=== PATIENT | female | born 1975 | race Caucasian/White ===

== ENCOUNTER 2025-05-19 19:27 | Emergency (ER) | payer MEDICAID, OTHER ==
[~2025-05-19] VITALS: Ht 170.2 cm; Wt 81.2 kg
[2025-05-19 20:34] VITALS: TEMP 98.4
[2025-05-19] MEDS ORDERED: KETOROLAC TROMETHAMINE 15 MG/ML VIAL ONE (20:57)
[2025-05-19] MEDS: FAMOTIDINE/PF INJ 20 MG/2 ML VIAL IV ONE (21:24)
[2025-05-19] MEDS: IV NS 0.9% 1,000 ML BAG IV ONE (21:24)
[2025-05-19 21:34] LABS: PLATELET COUNT (AUTO) 226 K/uL (150-450); RED BLOOD CELL COUNT(AUTO) 4.14 MIL/uL (4.0-5.2); RED CELL DISTRIBUTION WIDTH 13.2 % (11.5-15.0); WHITE BLOOD COUNT (AUTO) 4.9 K/uL (4.3-11.0)
[2025-05-19 21:36] LABS: APPEARANCE,URINE CLEAR (CLEAR); BLOOD, URINE NEGATIVE Ery/uL (NEGATIVE); LEUKOCYTE ESTERASE ,URINE NEGATIVE (NEGATIVE); NITRITE, URINE NEGATIVE (NEGATIVE); PREGNANCY TEST URINE QUAL NEGATIVE (NEGATIVE); UGLUCOSE NEGATIVE (NEGATIVE)
[2025-05-19 21:46] LABS: CALCIUM, SERUM 8.8 mg/dL (8.5-10.1); CREATININE 0.8 mg/dL (0.6-1.3); SODIUM SERUM 141.0 mmol/L (136-145); UREA NITROGEN, BLOOD 9.0 mg/dL (7-18)
[2025-05-19 21:54] LABS: ASPARTATE AMINOTRANSFERASE 13.0 U/L (15-37); TOTAL PROTEIN, SERUM 6.6 g/dL (6.4-8.2)
[2025-05-19] MEDS: KETOROLAC TROMETHAMINE 15 MG/ML VIAL IV ONE (21:56)
[2025-05-19] MEDS ORDERED: METOCLOPRAMIDE HCL 10 MG/2 ML VIAL ONE (22:14)
[2025-05-19] MEDS: METOCLOPRAMIDE HCL 10 MG/2 ML VIAL IV ONE (22:17)
[2025-05-19 22:44] VITALS: BP 120/78; O2SAT 99
== END 2025-05-19 22:44 | disposition home or self-care (01) ==
LOC: ER 19:46
DX: E03.9 Hypothyroidism, unspecified (principal); R10.13 Epigastric pain; R51.9 Headache, unspecified; M25.562 Pain in left knee; Z60.2 Problems related to living alone; Z20.822 Contact with and (suspected) exposure to COVID-19
CPT/HCPCS: 99285; 96374; 96375; 71045; 96361; 87426; 93005; 87804 ×2; 85025; 80048; 83690; 80076; 84703; 84436; 81003; 36415; 84443; J1885; J1200; J1308; J2765

== ENCOUNTER 2025-07-14 13:16 | Emergency (ER) | payer MEDICAID, OTHER ==
[~2025-07-14] VITALS: Ht 160 cm; Wt 65.8 kg
[2025-07-14 13:32] VITALS: TEMP 98
[2025-07-14] MEDS ORDERED: DICL100G34 TP (15:39)
[2025-07-14] MEDS ORDERED: ACET-2030 PO (15:39)
[2025-07-14] MEDS ORDERED: IBUP-1490 PO (15:39)
[2025-07-14] MEDS ORDERED: ACETAMINOPHEN ES 500 MG TABLET ONE (15:44)
[2025-07-14] MEDS ORDERED: IBUPROFEN 600 MG TABLET ONE (15:44)
[2025-07-14] MEDS: IBUPROFEN 600 MG TABLET PO ONE (15:47)
[2025-07-14] MEDS: ACETAMINOPHEN ES 500 MG TABLET PO ONE (15:47)
[2025-07-14 16:00] VITALS: BP 120/85; O2SAT 99
== END 2025-07-14 16:01 | disposition home or self-care (01) ==
LOC: ER 13:19
DX: M25.562 Pain in left knee (principal); M54.50 Low back pain, unspecified; Z60.2 Problems related to living alone
CPT/HCPCS: 72110-TC; 73564-TC; 73630-TC